=== PATIENT | male | born 1995 | race Caucasian/White ===

== ENCOUNTER 2020-01-28 22:29 | Emergency (ER) | payer SELFPAY ==
[2020-01-28 22:59] VITALS: BP 126/102
--- NOTE | 2020-01-28 23:08 | ER Document Report ---
ED Medical Screen (RME) - General Stated Complaint: ALCOHOL ABUSE, PYSCH PROBLEM Time Seen by Provider: 01/28/20 22:47 Notes: Patient is a 24-year-old male presents emergency department wanting help with his alcohol abuse. Patient's last drink was on the way here to the emergency department. Patient's friend is at bedside and states that normally he drinks a gallon to a gallon half of alcohol a day. Friend states that "he will drink any type of alcohol he can get his hands on." Patient has history of Tourette's syndrome. Patient states that alcohol is the only thing that helps control his Tourette's. Exam: Patient appears intoxicated. I have greeted and performed a rapid initial assessment of this patient. A comprehensive ED assessment and evaluation of the patient, analysis of test results and completion of medical decision making process will be conducted by an additional ED providers. TRAVEL OUTSIDE OF THE [place] IN LAST 30 DAYS: No - Related Data Allergies/Adverse Reactions: amoxicillin trihydrate [From Amoxil] Allergy (Verified 03/03/15 13:24) Penicillins Allergy (Verified 03/03/15 13:24) bee stings Allergy (Uncoded 12/22/14 11:21) Past Medical History GI Medical History: Reports: Hx Gastroesophageal Reflux Disease Musculoskeltal Medical History: Reports Hx Musculoskeletal Trauma Psychiatric Medical History: Reports: Hx Anxiety, Hx Depression Past Surgical History: Reports: Hx Orthopedic Surgery - right shoulder X2 - Immunizations Hx Diphtheria, Pertussis, Tetanus Vaccination: Yes Physical Exam - Vital signs Vitals: Temp Pulse Resp BP Pulse Ox 98.4 F 107 H 14 126/102 H 97 01/28/20 22:58 01/28/20 22:58 01/28/20 22:58 01/28/20 22:58 01/28/20 22:58 Course - Vital Signs Vital signs: Temp Pulse Resp BP Pulse Ox 98.4 F 107 H 14 126/102 H 97 01/28/20 22:58 01/28/20 22:58 01/28/20 22:58 01/28/20 22:58 01/28/20 22:58
== END 2020-01-29 00:42 | disposition left against medical advice (07) ==
LOC: ER 22:29
DX: F10.10 Alcohol abuse, uncomplicated (principal); K21.9 Gastro-esophageal reflux disease without esophagitis; F95.2 Tourette's disorder; Z88.0 Allergy status to penicillin
CPT/HCPCS: 99281